=== PATIENT | male | born 1970 ===

== ENCOUNTER 2017-03-27 21:56 | Inpatient (IN) | payer BC ==
[2017-03-27] MEDS ORDERED: Sodium Chloride 0.9% 1,000 ML IV STA (22:28)
[2017-03-27] MEDS ORDERED: Piperacillin/Tazobact 3.375 GM in Sodium Chloride 0.9% 100 ML IV STA (22:30)
[2017-03-27 22:46] LABS: ABG ALLEN TEST YES; ARTERIAL BLOOD GAS HCO3 27.7 mmol/L (21-28); ARTERIAL BLOOD GAS PH 7.44 (7.35-7.45); ARTERIAL BLOOD GAS PO2 51 mm/Hg (80-100)
--- NOTE | 2017-03-27 23:04 | CP.PCM.CON ---
History of Present Illness - History of Present Illness History of Present Illness: Podiatry Consult Note - Dr. Kinsey 47 year old male PMHx uncontrolled Type 2 DM seen in ED for left foot wound. Patient seen resting comfortably at time of visit. Patient is accompanied by and son at bedside. Patient states he first noticed an abscess forming on the back of his heel approximately 3 days ago; patient denies any acute trauma to the area. Patient believes it developed because of his shoes rubbing against his heel. Patient states yesterday he popped the abscess and noticed pus coming out of it, which led him to present to [facility] ED. Patient denies any pain to his left heel. Patient admits to being diabetic, but states he does not take any medications or check his blood sugar at all. Patient admits to feeling numbness , burning, and tingling frequently in both feet. Patient denies N/V/F/D/C/SOB/ calf pain. Offers no other pedal complaints at this time. PMH: Type 2 DM PSH: none FH: unknown SH: occasional ETOH, 2 PPD tobacco use for over 20 years, regular marijuana use , occasional cocaine use Meds: none All: NKDA Review of Systems - Review of Systems All systems: reviewed and no additional remarkable complaints except (as per HPI ) Past Patient History - Past Social History Smoking Status: Never Smoked - PSYCHIATRIC Hx Substance Use: No - SURGICAL HISTORY Hx Surgeries: No Meds Allergies/Adverse Reactions: Allergies Allergy/AdvReac Type Severity Reaction Status Date / Time No Known Allergies Allergy Verified 03/26/15 18:29 - Medications Medications: Current Medications Sodium Chloride (Sodium Chloride 0.9%) 1,000 mls @ 1,000 mls/hr IV .Q1H STA Stop: 03/27/17 23:27 Vancomycin HCl 1 gm/ Sodium (Chloride) 250 mls @ 250 mls/hr IVPB STAT STA PRN Reason: Protocol Stop: 03/27/17 23:29 Piperacillin Sod/Tazobactam (Sod 3.375 gm/ Sodium Chloride) 100 mls @ 100 mls/ hr IV STAT STA PRN Reason: Protocol Stop: 03/27/17 23:29 Physical Exam - Constitutional Appears: Well, Non-toxic, No Acute Distress - Extremities Exam Additional comments: VASC: DP and PT pulses palpable 2/4 b/l. CFT <3 seconds to all digits x10. Pedal hair growth appreciated. Increase in warmth noted to left foot as compared to contralateral side, specifically at posterior calcaneus. No edema noted. NEURO: Gross sensation diminished bilaterally. DERM: Lanced abscess noted to left posterosuperolateral calcaneus with crust overlying opening - no purulence able to be expressed at this visit; does not probe to bone. Erythema noted to dorsolateral left foot. No flucutance noted. ORTHO: No pain on palpation posterosuperolateral left calcaneus. No pain upon calcaneal squeeze L foot. No pain on palpation left Achilles tendon. Muscle strength 5/5 for all dorsiflexors, plantarflexors, inverters, and everters without pain or crepitus noted b/l. - Neurological Exam Neurological exam: Alert, Oriented x3 - Psychiatric Exam Psychiatric exam: Normal Affect, Normal Mood Results - Vital Signs Recent Vital Signs: Last Vital Signs Temp 96.6 F L 03/27/17 21:58 Pulse 107 H 03/27/17 21:58 Resp 18 03/27/17 21:58 BP 139/81 03/27/17 21:58 Pulse Ox 100 03/27/17 21:58 - Labs Result Diagrams: 03/27/17 23:38 03/27/17 23:38 Labs: Laboratory Results - last 24 hr 03/27/17 22:40 pCO2 42 pO2 51 L HCO3 27.7 ABG pH 7.44 ABG Total CO2 29.8 H ABG O2 Saturation 94.7 L ABG Base Excess 3.9 H Steve Test Yes ABG Potassium 3.7 A-a O2 Difference 46.0 Sodium 134.0 Chloride 100.0 Glucose 395 H Lactate 1.6 FiO2 21.0 Arterial Blood Potassium 3.7 Assessment & Plan - Assessment and Plan (Free Text) Assessment: 47 year old male PMHx uncontrolled DM2 with left foot posterior calcaneal abscess + cellulitis 2/2 diabetic neuropathy Plan: Patient seen and evaluated in ED Discussed with attending, Dr. Kinsey Labs and vitals reviewed = WBC increased 11.2, afebrile, glucose 343 L foot XR reviewed - Negative for fracture; no plain film evidence of osteomyelitis; break in soft tissue envelope to posteriosuperior calcaneus Wound culture obtained from abscess, f/u report DSD applied to left foot Bactroban ordered C/w local wound care - Bactroban to abscess and dress with DSD Patient to be admitted for further evaluation of left foot abscess Will continue to follow patient while in house
--- NOTE | 2017-03-27 23:04 | ED PDOC ---
Lower Extremity Pain/Injury Time Seen by Provider: 03/27/17 22:08 Chief Complaint (Nursing): Lower Extremity Problem/Injury Chief Complaint (Provider): abcess Onset/Duration Of Symptoms: Days (three ) Current Symptoms Are (Timing): Still Present Additional Complaint(s): 47 y.o. male with hx of Type II Diabetes mellitus diagnosed 7 years ago not on any medications presents to [facility] for evaluation of abcess. Pt. states he first noted the abcess three days ago located on left foot. Pt. states it has been uncomfortable when walking and gets aggravated when it rubs up against the inside of his shoe especially because he has not been wearing socks with his shoes. Pt. also states he smokes 2 packs of cigarettes and sometimes he gets cramps in his legs which get relieved with rest. Pt. states yesterday he popped his abcess and puss was coming out of it. - Ankle/Foot Description Of Injury: Other (Left foot abrasion ) - Risk Factors DVT Risk Factors: Neg: Decreased Mobility, Extremity Immobiliztion, Major Surgery, History Of DVT, History Of PE Past Medical History Vital Signs: Last Vital Signs Temp 96.6 F L 03/27/17 21:58 Pulse 107 H 03/27/17 21:58 Resp 18 03/27/17 21:58 BP 139/81 03/27/17 21:58 Pulse Ox 100 03/27/17 21:58 - Medical History PMH: Diabetes - Surgical History Surgical History: No Surg Hx - Family History Family History: States: No Known Family Hx - Social History Current smoker - smoking cessation education provided: Yes SMOKER/PACKS PER DAY:: 2 Alcohol: > 2 Drinks/Day Drugs: Cannabis, Opiates - Home Medications Home Medications: Ambulatory Orders Medication Instructions Recorded No Known Home Med 03/28/17 - Allergies Allergies/Adverse Reactions: Allergies Allergy/AdvReac Type Severity Reaction Status Date / Time No Known Allergies Allergy Verified 03/26/15 18:29 Wells Criteria for PE - Wells Criteria for Pulmonary Embolism P.E is #1 Diagnosis, or Equally Likely: No Heart Rate >100: Yes Immobilization at least 3 days;Surgery previous 4 weeks: No Previous, objectively diagnosed PE or DVT: No Malignancy w/treatment within 6 months, or palliative: No Total Score: 1.5 Review of Systems Constitutional: Negative for: Fever, Chills Eyes: Negative for: Pain, Vision Change ENT: Negative for: Ear Pain, Ear Discharge Cardiovascular: Negative for: Chest Pain, Palpitations Respiratory: Negative for: Cough, Shortness of Breath Gastrointestinal: Negative for: Nausea, Vomiting, Abdominal Pain Musculoskeletal: Positive for: Foot Pain Skin: Positive for: Lesions (abcess ) Neurological: Negative for: Weakness, Numbness Psych: Negative for: Anxiety, Depression Physical Exam - Reviewed Vital Signs Reviewed: Yes (tachycardic ) - Physical Exam Appears: Positive for: No Acute Distress Skin: Positive for: Dry (Flushed appearrance ) Eye Exam: Positive for: PERRL. Negative for: Scleral icterus ENT: Positive for: Other (poor dention missing severa teeth ) Neck: Positive for: Painless ROM Cardiovascular/Chest: Positive for: Tachycardia. Negative for: Murmur Respiratory: Positive for: Normal Breath Sounds. Negative for: Accessory Muscle Use Pulses-Dorsalis Pedis (R): 1+ Pulses-Femoral (L): 1+ Extremity: Positive for: Capillary Refill (2 seconds), Other (abcess located left foot posterior to achilles tendon with crusting 3x4cm). Negative for: Calf Tenderness Neurologic/Psych: Positive for: Alert, Oriented - Laboratory Results Result Diagrams: 03/27/17 23:38 03/27/17 23:38 - ECG O2 Sat by Pulse Oximetry: 100 - Progress ED Course And Treament: EKG- Sinus tachycardia Accucheck- 343 Metformin 500mg I.V. fluids N.S. x 1 liter CBC- WBC elevated CMP- WNL Coags- WNL ABG- WNL Bcx Urine Dip ETOH serum < 10 Urine drug screen Wound culture- collected and sent by podaitry I.V. Vancomycin I.V. Nallelysydc Podiatry consult Medical Decision Making Medical Decision Making: Pt. is a 47 y.o. male with hx of type II DM diagnosed 7 years ago not taking any medications and smoking 2 packs per day for 30 years presents to E.D. for evaluation of left foot abscess with an accucheck of 344, tachycardia, ketones in urine will need to be admitted for diabetic ketoacidosis and evaluation of left foot abscess possibly secondary to Type II DM and underlying peripheral vascular disease. Pt. will need to be admitted for treatment of above mentioned medical problems including diabetic ketoacidosis secondary to uncontrolled type II diabetes mellitus. Pt. informed and agrees for admission. Disposition - Clinical Impression Clinical Impression: Abscess of foot, Diabetic ketoacidosis Discussed With Dr.: Rodri Estrella - Disposition Disposition Time: 23:30 Condition: GUARDED Forms: [facility] ([place])
[2017-03-27 23:42] LABS: BASO # 0.1 K/uL (0.0-0.2); BASO % 0.5 % (0.0-2.0); EOS # 0.1 K/uL (0.0-0.7); HEMATOCRIT 44.6 % (35.0-51.0); LYMPH # 1.6 K/uL (1.0-4.3); LYMPH % 13.9 % (20.0-40.0); MEAN CELL VOLUME 90.3 fl (80.0-94.0); MEAN CORPUSCULAR HEMOGLOBIN 30.5 pg (27.0-31.0); MEAN CORPUSCULAR HGB CONC 33.7 g/dL (33.0-37.0); MEAN PLATELET VOLUME 8.8 fl (7.2-11.7); MONO # 0.9 K/uL (0.0-0.8); NEUT # 8.6 K/uL (1.8-7.0); NEUT % 76.6 % (50.0-75.0); RED CELL DISTRIBUTION WIDTH 13.1 % (11.5-14.5); WHITE BLOOD COUNT 11.2 K/uL (4.8-10.8)
[2017-03-27] MEDS ORDERED: Vancomycin 1 g Inj ONE (23:43)
[2017-03-27 23:51] LABS: ALB/GLOB RATIO 1.5 (1.0-2.1); ALCOHOL SERUM < 10 mg/dl (0-10); ALKALINE PHOSPHATASE 89 U/L (38-126); ALT/SGPT 36 U/L (21-72); AST/SGOT 20 U/L (17-59); BILIRUBIN,TOTAL 0.4 mg/dl (0.2-1.3); BLOOD UREA NITROGEN 13 mg/dl (9-20); CALCIUM 9.1 mg/dL (8.4-10.2); CARBON DIOXIDE 27 mmol/L (22-30); CHLORIDE 99 mmol/L (98-107); GFR AFRICAN-AMERICAN > 60; GLUCOSE,RANDOM 337 mg/dL (75-110); POTASSIUM 3.7 MMOL/L (3.6-5.0); SODIUM 139 mmol/l (132-148); TOTAL PROTEIN 6.9 G/DL (6.3-8.2)
[2017-03-27 23:54] LABS: PARTIAL THROMBOPLASTIN TIME 30.5 Seconds (25.6-37.1)
[2017-03-28 01:07] LABS: RBC URINE 1 /hpf (0-3); URINE BILIRUBIN NEGATIVE (NEGATIVE); URINE BLOOD NEGATIVE (NEGATIVE); URINE COLOR STRAW (YELLOW); URINE GLUCOSE (UA) >=500 mg/dL (Normal); URINE KETONE NEGATIVE (NEGATIVE); URINE LEUKOCYTE ESTERASE NEG Leu/uL (Negative); URINE PROTEIN NEGATIVE (NEGATIVE); URINE UROBILINOGEN 0.2-1.0 mg/dL (0.2-1.0); WBC URINE < 1 /hpf (0-5)
[2017-03-28] MEDS ORDERED: Pneumococcal 23-Valent Vaccine IM ONE (09:00)
[2017-03-28] MEDS ORDERED: Influenza Vaccine 18yr & older 0.5 ML/45 MCG SYR IM ONE (09:00)
--- NOTE | 2017-03-28 09:22 | RAD ---
PROCEDURE: Left Foot Radiographs. HISTORY: Abcess in type 2 diabetic COMPARISON: None. FINDINGS: BONES: Three views of the left foot were performed. No fracture is seen. No lytic process is noted. No periosteal reaction is seen. No erosions are identified. Mild degenerative changes are appreciated. No appreciable air is seen in the soft tissues. Posterior calcaneal spurs identified. Subtalar joint is unremarkable. JOINTS: Mild degenerative changes. SOFT TISSUES: Mild soft tissue swelling. No focal area of air in the soft tissues is seen to suggest abscess. No radiopaque foreign body is seen. OTHER FINDINGS: None. IMPRESSION: No fracture. No plain film evidence of osteomyelitis. Mild degenerative changes. MRI may prove helpful for further evaluation.
--- NOTE | 2017-03-28 09:40 | RAD ---
HISTORY: admit COMPARISON: No prior. FINDINGS: LUNGS: No active pulmonary disease. PLEURA: No significant pleural effusion identified, no pneumothorax apparent. CARDIOVASCULAR: Normal. OSSEOUS STRUCTURES: No significant abnormalities. VISUALIZED UPPER ABDOMEN: Normal. OTHER FINDINGS: None. IMPRESSION: No active disease.
--- NOTE | 2017-03-28 15:08 | CP.PCM.HP ---
History of Present Illness - History of Present Illness History of Present Illness: This is a 47 y/o male admitted for ulcer and abscess of the right heel. achilles for the past 3 days. Claims that he noted the ulcer to have developed 3 days ago which he thought was just from pressure from wearing shoes without socks. Took OTC meds biut to no avail hence sough consult at the ER. he was diagnosed to have DM 2 and used to be on metformin but lost his health insurance hence there was poor compliance. There was no fever or cough . Denies any foot pain although he claims to have some p sensation of pins and needles at times on both lower extremities. Present on Admission - Present on Admission Any Indicators Present on Admission: No History of DVT/PE: No History of Uncontrolled Diabetes: Yes Urinary Catheter: No Decubitus Ulcer Present: No Past Patient History - Past Medical History & Family History Past Medical History?: Yes - Past Social History Smoking Status: Heavy Smoker > 10 Cigarettes Daily - ENDOCRINE/METABOLIC Hx Endocrine Disorders: Yes Hx Diabetes Mellitus Type 2: Yes - MUSCULOSKELETAL/RHEUMATOLOGICAL Hx Falls: No - PSYCHIATRIC Hx Substance Use: No - SURGICAL HISTORY Hx Surgeries: No - ANESTHESIA Hx Anesthesia: No Hx Anesthesia Reactions: No Hx Malignant Hyperthermia: No Has any member of the family had a problem w/ anesthesia?: No Meds Allergies/Adverse Reactions: Allergies Allergy/AdvReac Type Severity Reaction Status Date / Time No Known Allergies Allergy Verified 03/26/15 18:29 Physical Exam - Head Exam Head Exam: ATRAUMATIC - Eye Exam Eye Exam: Normal appearance - ENT Exam ENT Exam: Mucous Membranes Moist - Respiratory Exam Respiratory Exam: Clear to Auscultation Bilateral, NORMAL BREATHING PATTERN - Cardiovascular Exam Cardiovascular Exam: REGULAR RHYTHM - GI/Abdominal Exam GI & Abdominal Exam: Normal Bowel Sounds - Rectal Exam Rectal Exam: NORMAL INSPECTION - Extremities Exam Additional comments: swelloig and tenderness on the left heel and left Achilles area. - Neurological Exam Neurological exam: CN II-XII Intact, Oriented x3 - Psychiatric Exam Psychiatric exam: Normal Mood Results - Vital Signs Recent Vital Signs: Last Vital Signs Temp 98 F 03/28/17 09:00 Pulse 71 03/28/17 07:58 Resp 18 03/28/17 07:58 BP 134/80 03/28/17 07:58 Pulse Ox 98 03/28/17 07:58 - Labs Result Diagrams: 03/27/17 23:38 03/27/17 23:38 Labs: Laboratory Results - last 24 hr 03/27/17 03/27/17 03/27/17 22:03 22:40 23:38 WBC 11.2 H RBC 4.94 Hgb 15.1 Hct 44.6 MCV 90.3 MCH 30.5 MCHC 33.7 RDW 13.1 Plt Count 201 MPV 8.8 Neut % (Auto) 76.6 H Lymph % (Auto) 13.9 L [place] % (Auto) 8.0 Eos % (Auto) 1.0 Baso % (Auto) 0.5 Neut # 8.6 H Lymph # 1.6 [place] # 0.9 H Eos # 0.1 Baso # 0.1 PT INR APTT pCO2 42 pO2 51 L HCO3 27.7 ABG pH 7.44 ABG Total CO2 29.8 H ABG O2 Saturation 94.7 L ABG Base Excess 3.9 H Steve Test Yes ABG Potassium 3.7 A-a O2 Difference 46.0 Sodium 134.0 Chloride 100.0 Glucose 395 H Lactate 1.6 FiO2 21.0 Potassium Carbon Dioxide Anion Gap BUN Creatinine Est GFR ( Amer) Est GFR (Non-Af Amer) POC Glucose (mg/dL) 343 H Random Glucose Calcium Total Bilirubin AST ALT Alkaline Phosphatase Total Protein Albumin Globulin Albumin/Globulin Ratio Arterial Blood Potassium 3.7 Urine Color Urine Clarity Urine pH Ur Specific [place] Urine Protein Urine Glucose (UA) Urine Ketones Urine Blood Urine Nitrate Urine Bilirubin Urine Urobilinogen Ur Leukocyte Esterase Urine RBC (Auto) Urine Microscopic WBC Urine Opiates Screen Urine Methadone Screen Ur Barbiturates Screen Ur Phencyclidine Scrn Ur Amphetamines Screen U Benzodiazepines Scrn U Oth Cocaine Metabols U Cannabinoids Screen Alcohol, Quantitative 03/27/17 03/27/17 03/28/17 23:38 23:38 00:51 WBC RBC Hgb Hct MCV MCH MCHC RDW Plt Count MPV Neut % (Auto) Lymph % (Auto) [place] % (Auto) Eos % (Auto) Baso % (Auto) Neut # Lymph # [place] # Eos # Baso # PT 11.0 INR 1.0 APTT 30.5 pCO2 pO2 HCO3 ABG pH ABG Total CO2 ABG O2 Saturation ABG Base Excess Steve Test ABG Potassium A-a O2 Difference Sodium 139 Chloride 99 Glucose Lactate FiO2 Potassium 3.7 Carbon Dioxide 27 Anion Gap 16 BUN 13 Creatinine 0.6 L Est GFR ( Amer) > 60 Est GFR (Non-Af Amer) > 60 POC Glucose (mg/dL) Random Glucose 337 H Calcium 9.1 Total Bilirubin 0.4 AST 20 ALT 36 Alkaline Phosphatase 89 Total Protein 6.9 Albumin 4.2 Globulin 2.7 Albumin/Globulin Ratio 1.5 Arterial Blood Potassium Urine Color Urine Clarity Urine pH Ur Specific [place] Urine Protein Urine Glucose (UA) Urine Ketones Urine Blood Urine Nitrate Urine Bilirubin Urine Urobilinogen Ur Leukocyte Esterase Urine RBC (Auto) Urine Microscopic WBC Urine Opiates Screen Negative Urine Methadone Screen Negative Ur Barbiturates Screen Negative Ur Phencyclidine Scrn Negative Ur Amphetamines Screen Negative U Benzodiazepines Scrn Negative U Oth Cocaine Metabols Positive H U Cannabinoids Screen Positive H Alcohol, Quantitative < 10 03/28/17 03/28/17 03/28/17 00:51 05:29 10:53 WBC RBC Hgb Hct MCV MCH MCHC RDW Plt Count MPV Neut % (Auto) Lymph % (Auto) [place] % (Auto) Eos % (Auto) Baso % (Auto) Neut # Lymph # [place] # Eos # Baso # PT INR APTT pCO2 pO2 HCO3 ABG pH ABG Total CO2 ABG O2 Saturation ABG Base Excess Steve Test ABG Potassium A-a O2 Difference Sodium Chloride Glucose Lactate FiO2 Potassium Carbon Dioxide Anion Gap BUN Creatinine Est GFR ( Amer) Est GFR (Non-Af Amer) POC Glucose (mg/dL) 216 H 190 H Random Glucose Calcium Total Bilirubin AST ALT Alkaline Phosphatase Total Protein Albumin Globulin Albumin/Globulin Ratio Arterial Blood Potassium Urine Color Straw Urine Clarity Clear Urine pH 6.0 Ur Specific [place] 1.014 Urine Protein Negative Urine Glucose (UA) >=500 Urine Ketones Negative Urine Blood Negative Urine Nitrate Negative Urine Bilirubin Negative Urine Urobilinogen 0.2-1.0 Ur Leukocyte Esterase Neg Urine RBC (Auto) 1 Urine Microscopic WBC < 1 Urine Opiates Screen Urine Methadone Screen Ur Barbiturates Screen Ur Phencyclidine Scrn Ur Amphetamines Screen U Benzodiazepines Scrn U Oth Cocaine Metabols U Cannabinoids Screen Alcohol, Quantitative Assessment & Plan (1) Abscess of foot Status: Acute (2) Diabetes mellitus type 2 in nonobese Status: Acute (3) Peripheral vascular disease Status: Acute - Assessment and Plan (Free Text) Plan: cont meds cont iv antibioitcs start gabapentin check arterial doppler lower ext metformin januvia and pioglitazone. cont accucheck bid only
--- NOTE | 2017-03-28 17:15 | US ---
PROCEDURE: Duplex ultrasound of the bilateral lower extremity arteries. HISTORY: pvd foot ulcer dm 2 COMPARISON: None available. TECHNIQUE: Grayscale and duplex Doppler evaluation of the bilateral common femoral, superficial femoral, popliteal, posterior tibial and dorsalis pedis arteries was performed.. FINDINGS: RIGHT LOWER EXTREMITY: RIGHT COMMON FEMORAL ARTERY: Mild atherosclerotic change. Maximal flow velocity of 100 cm/s. RIGHT SUPERFICIAL FEMORAL ARTERY: Widely patent proximal, mid, and distal. Maximal flow velocity of 97 cm/s. RIGHT POPLITEAL ARTERY:Mild atherosclerotic change Maximal flow velocity of 54 cm/s. RIGHT POSTERIOR TIBIAL ARTERY: Mild atherosclerotic narrowing Maximal flow velocity of 61 cm/s. RIGHT DORSALIS PEDIS ARTERY: Mild atherosclerotic change. Biphasic flow. Maximal flow velocity of 145 cm/s. LEFT LOWER EXTREMITY: LEFT COMMON FEMORAL ARTERY: Widely patent. Maximal flow velocity of 111 cm/s. LEFT SUPERFICIAL FEMORAL ARTERY: Widely patent. Maximal flow velocity of 94 cm/s. LEFT POPLITEAL ARTERY:Mild atherosclerotic change. Maximal flow velocity of 83 cm/s. LEFT POSTERIOR TIBIAL ARTERY: Atherosclerotic change. Triphasic waveform Maximal flow velocity of 105 cm/s. LEFT DORSALIS PEDIS ARTERY: Mild atherosclerotic change with triphasic flow. Maximal flow velocity of 83 cm/s. OTHER FINDINGS: Anterior tibial arteries are unremarkable. Incidental note is made of a nonspecific complex heterogeneous right 20 mass which should be further correlated with physical exam. This may reflect enlarged lymph node or other mass including abscess. This measures 5.9 x 3.2 x 2.6 centimeters. IMPRESSION: Biphasic flow with atherosclerotic change in velocity elevation in the right dorsalis pedis suggesting atherosclerotic change and hemodynamic stenosis. Further clinical follow-up suggested. No hemodynamic significant stenosis elsewhere. Large right groin mass requiring further clinical follow-up.
[2017-03-28] MEDS: Piperacillin/Tazobact 3.375 GM in Sodium Chloride 0.9% 100 ML IVPB SCH (20:35)
--- NOTE | 2017-03-28 23:33 | CP.PCM.PN ---
Subjective - Date & Time of Evaluation Date of Evaluation: 03/28/17 Time of Evaluation: 15:00 - Subjective Subjective: Podiatry Progress Note - Dr. Kinsey 47 year old male patient PMHx uncontrolled Type 2 DM seen at bedside for left foot wound + cellulitis. Patient seen resting comfortably at time of visit. Patient is accompanied by at bedside. Patient denies any acute overnight events. Patient denies pain in his left foot today. Patient denies N/V/F/D/C/ SOB. Objective - Vital Signs/Intake and Output Vital Signs (last 24 hours): Temp Pulse Resp BP Pulse Ox 99.0 F 71 19 124/50 L 97 03/28/17 15:32 03/28/17 15:32 03/28/17 15:32 03/28/17 15:32 03/28/17 17:00 - Medications Medications: Current Medications Vancomycin HCl 1 gm/ Sodium (Chloride) 250 mls @ 166.667 mls/hr IVPB Q12 TAYLOR PRN Reason: Protocol Last Admin: 03/28/17 20:38 Dose: 166.667 mls/hr Piperacillin Sod/Tazobactam (Sod 3.375 gm/ Sodium Chloride) 100 mls @ 100 mls/ hr IVPB Q12 TAYLOR PRN Reason: Protocol Last Admin: 03/28/17 20:35 Dose: 100 mls/hr Metformin HCl (Glucophage) 1,000 mg PO BIDWM [facility] Last Admin: 03/28/17 16:21 Dose: 1,000 mg Mupirocin (Bactroban Ointment) 1 applic TOP BID [facility] Last Admin: 03/28/17 16:22 Dose: 1 % Pioglitazone HCl (Actos) 30 mg PO DAILY [facility] Last Admin: 03/28/17 16:20 Dose: 30 mg Sitagliptin Phosphate (Januvia) 100 mg PO DAILY [facility] Last Admin: 03/28/17 16:20 Dose: 100 mg - Labs Labs: 03/27/17 23:38 03/27/17 23:38 PT 11.0 Seconds (9.8-13.1) 03/27/17 23:38 INR 1.0 (0.9-1.2) 03/27/17 23:38 APTT 30.5 Seconds (25.6-37.1) 03/27/17 23:38 - Constitutional Appears: Well, Non-toxic, No Acute Distress - Extremities Exam Additional comments: VASC: DP and PT pulses palpable 2/4 b/l. CFT <3 seconds to all digits x10. Pedal hair growth appreciated. Increase in warmth noted to left foot as compared to contralateral side, specifically at posterior calcaneus. No edema noted. NEURO: Gross sensation diminished bilaterally. DERM: Lanced abscess noted to left posterosuperolateral calcaneus with crust overlying opening - no purulence able to be expressed at this visit; does not probe to bone. Erythema noted to dorsolateral left foot. No flucutance noted. ORTHO: No pain on palpation posterosuperolateral left calcaneus. No pain upon calcaneal squeeze L foot. No pain on palpation left Achilles tendon. Muscle strength 5/5 for all dorsiflexors, plantarflexors, inverters, and everters without pain or crepitus noted b/l. - Neurological Exam Neurological Exam: Alert, Awake, Oriented x3 - Psychiatric Exam Psychiatric exam: Normal Affect, Normal Mood Assessment and Plan - Assessment and Plan (Free Text) Assessment: 47 year old male PMHx uncontrolled DM2 with left foot posterior calcaneal abscess + cellulitis 2/2 diabetic neuropathy Plan: Patient seen and evaluated in ED Discussed with attending, Dr. Kinsey Labs and vitals reviewed = afebrile L foot XR reviewed - Negative for fracture; no plain film evidence of osteomyelitis; break in soft tissue envelope to posteriosuperior calcaneus Awaiting wound culture report Bactroban + DSD applied to left foot C/w local wound care Continue IV abx - Vancomycin, Zosyn - ID consulted, recs appreciated Will continue to follow patient while in house
--- NOTE | 2017-03-29 06:37 | CP.PCM.PN ---
Subjective - Date & Time of Evaluation Date of Evaluation: 03/29/17 Time of Evaluation: 06:35 - Subjective Subjective: Podiatry Progress Note - Dr. Kinsey 47 year old male patient PMHx uncontrolled Type 2 DM seen at bedside for left foot wound + cellulitis. Patient denies any acute overnight events. Patient denies pain in his left foot today. Patient denies N/V/F/D/C/SOB. Offers no pedal complaints at today's visit. Objective - Vital Signs/Intake and Output Vital Signs (last 24 hours): Temp Pulse Resp BP Pulse Ox 97.8 F 67 19 125/75 99 03/29/17 00:00 03/29/17 00:00 03/29/17 00:00 03/29/17 00:00 03/29/17 00:00 - Medications Medications: Current Medications Vancomycin HCl 1 gm/ Sodium (Chloride) 250 mls @ 166.667 mls/hr IVPB Q12 [facility] PRN Reason: Protocol Last Admin: 03/28/17 20:38 Dose: 166.667 mls/hr Piperacillin Sod/Tazobactam (Sod 3.375 gm/ Sodium Chloride) 100 mls @ 100 mls/ hr IVPB Q12 [facility] PRN Reason: Protocol Last Admin: 03/28/17 20:35 Dose: 100 mls/hr Metformin HCl (Glucophage) 1,000 mg PO BIDWM [facility] Last Admin: 03/28/17 16:21 Dose: 1,000 mg Mupirocin (Bactroban Ointment) 1 applic TOP BID [facility] Last Admin: 03/28/17 16:22 Dose: 1 % Pioglitazone HCl (Actos) 30 mg PO DAILY [facility] Last Admin: 03/28/17 16:20 Dose: 30 mg Sitagliptin Phosphate (Januvia) 100 mg PO DAILY [facility] Last Admin: 03/28/17 16:20 Dose: 100 mg - Labs Labs: 03/27/17 23:38 03/27/17 23:38 PT 11.0 Seconds (9.8-13.1) 03/27/17 23:38 INR 1.0 (0.9-1.2) 03/27/17 23:38 APTT 30.5 Seconds (25.6-37.1) 03/27/17 23:38 - Constitutional Appears: Well, Non-toxic, No Acute Distress - Extremities Exam Additional comments: VASC: DP and PT pulses palpable 2/4 b/l. CFT <3 seconds to all digits x10. Pedal hair growth appreciated. Increase in warmth noted to left foot as compared to contralateral side, specifically at posterior calcaneus. No edema noted. NEURO: Gross sensation diminished bilaterally. DERM: Lanced abscess noted to left posterosuperolateral calcaneus with crust overlying opening - no purulence able to be expressed at this visit; does not probe to bone. Erythema noted to dorsolateral left foot, resolving. No flucutance noted. ORTHO: No pain on palpation posterosuperolateral left calcaneus. No pain upon calcaneal squeeze L foot. No pain on palpation left Achilles tendon. Muscle strength 5/5 for all dorsiflexors, plantarflexors, inverters, and everters without pain or crepitus noted b/l. - Neurological Exam Neurological Exam: Alert, Awake, Oriented x3 - Psychiatric Exam Psychiatric exam: Normal Affect, Normal Mood Assessment and Plan - Assessment and Plan (Free Text) Assessment: 47 year old male PMHx uncontrolled DM2 with left foot posterior calcaneal abscess + cellulitis 2/2 diabetic neuropathy Plan: Patient seen and evaluated in ED Discussed with attending, Dr. Kinsey Labs and vitals reviewed = afebrile L foot XR reviewed - Negative for fracture; no plain film evidence of osteomyelitis; break in soft tissue envelope to posteriosuperior calcaneus Wound culture (prelim) - gram positive cocci Bactroban + DSD applied to left foot C/w local wound care Continue IV abx - Vancomycin, Zosyn - ID consulted: continue IV then PO rx minimum 7-10 days Will continue to follow patient while in house
[2017-03-29 06:45] LABS: BASO # 0.1 K/uL (0.0-0.2); BASO % 0.6 % (0.0-2.0); EOS # 0.3 K/uL (0.0-0.7); EOS % 2.1 % (0.0-4.0); HEMATOCRIT 45.5 % (35.0-51.0); LYMPH # 1.9 K/uL (1.0-4.3); LYMPH % 15.1 % (20.0-40.0); MEAN CELL VOLUME 91.6 fl (80.0-94.0); MEAN CORPUSCULAR HEMOGLOBIN 30.9 pg (27.0-31.0); MEAN CORPUSCULAR HGB CONC 33.7 g/dL (33.0-37.0); MEAN PLATELET VOLUME 9.1 fl (7.2-11.7); MONO # 1.1 K/uL (0.0-0.8); MONO % 8.5 % (0.0-10.0); NEUT # 9.3 K/uL (1.8-7.0); NEUT % 73.7 % (50.0-75.0); RED CELL DISTRIBUTION WIDTH 12.9 % (11.5-14.5); WHITE BLOOD COUNT 12.6 K/uL (4.8-10.8)
[2017-03-29 07:17] LABS: THYROID STIMULATING HORMONE 1.91 mIU/ML (0.46-4.68)
[2017-03-29 08:12] LABS: BLOOD UREA NITROGEN 14 mg/dl (9-20); CALCIUM 9.6 mg/dL (8.4-10.2); CARBON DIOXIDE 28 mmol/L (22-30); CHLORIDE 103 mmol/L (98-107); GFR AFRICAN-AMERICAN > 60; GLUCOSE,RANDOM 143 mg/dL (75-110); POTASSIUM 4.5 MMOL/L (3.6-5.0); SODIUM 139 mmol/l (132-148)
[2017-03-29 08:14] VITALS: RESP 20
[2017-03-29] MEDS: Piperacillin/Tazobact 3.375 GM in Sodium Chloride 0.9% 100 ML IVPB SCH ×2 (09:58→20:15)
--- NOTE | 2017-03-29 10:42 | CP.PCM.CON ---
History of Present Illness - History of Present Illness History of Present Illness: 47 y.o. male with hx of Type II Diabetes mellitus diagnosed 7 years ago not on any medications presents to E.D. for evaluation of abcess. Pt. states he first noted the abcess three days ago located on left foot. Pt. states it has been uncomfortable when walking and gets aggravated when it rubs up against the inside of his shoe especially because he has not been wearing socks with his shoes. Pt. also states he smokes 2 packs of cigarettes and sometimes he gets cramps in his legs which get relieved with rest. Pt. states yesterday he popped his abcess and puss was coming out of it. Review of Systems - Constitutional Constitutional: As Per HPI - EENT Eyes: absent: As Per HPI, Blind Spots, Blurred Vision, Change in Vision, Decreased Night Vision, Diplopia, Discharge, Dry Eye, Exophthalmos, Floaters, Irritation, Itchy Eyes, Loss of Peripheral Vision, Pain, Photophobia, Requires Corrective Lenses, Sees Flashes, Spots in Vision, Tunnel Vision, Other Visual Disturbances, Loss of Vision, Other Ears: absent: As Per HPI, Decreased Hearing, Ear Discharge, Ear Pain, Tinnitus, Abnormal Hearing, Disequilibrium, Dizziness, Other Nose/Mouth/Throat: absent: As Per HPI, Epistaxis, Nasal Congestion, Nasal Discharge, Nasal Obstruction, Nasal Trauma, Nose Pain, Post Nasal Drip, Sinus Pain, Sinus Pressure, Bleeding Gums, Change in Voice, Dental Pain, Dry Mouth, Dysphagia, Halitosis, Hoarsness, Lip Swelling, Mouth Lesions, Mouth Pain, Odynophagia, Sore Throat, Throat Swelling, Tongue Swelling, Facial Pain, Neck Pain, Neck Mass, Other - Cardiovascular Cardiovascular: absent: As Per HPI, Acrocyanosis, Chest Pain, Chest Pain at Rest , Chest Pain with Activity, Claudication, Diaphoresis, Dyspnea, Dyspnea on Exertion, Edema, Irregular Heart Rhythm, Pain Radiating to Arm/Neck/Jaw, Leg Edema, Leg Ulcers, Lightheadedness, Orthopnea, Palpitations, Paroxysmal Nocturnal Dyspnea, Pedal Edema, Radiating Pain, Rapid Heart Rate, Slow Heart Rate, Syncope, Other - Respiratory Respiratory: absent: As Per HPI, Cough, Dyspnea, Hemoptysis, Dyspnea on Exertion , Wheezing, Snoring, Stridor, Pain on Inspiration, Chest Congestion, Excessive Mucous Production, Change in Mucous Color, Pain with Coughing, Other - Gastrointestinal Gastrointestinal: absent: As Per HPI, Abdominal Pain, Belching, Bloating, Change in Bowel Habits, Change in Stool Character, Coffee Ground Emesis, Constipation, Cramping, Diarrhea, Dyspepsia, Dysphagia, Early Satiety, Excessive Flatus, Fecal Incontinence, Heartburn, Hematemesis, Hematochezia, Loose Stools, Melena, Nausea, Odynophagia, Temesmus, Vomiting, Other - Genitourinary Genitourinary: absent: As Per HPI, Change in Urinary Stream, Difficulty Urinating, Dysuria, Flank Pain, Hematuria, Pyuria, Nocturia, Urinary Incontinence, Urinary Frequency, Urinary Hesitance, Urinary Urgency, Voiding Freq/Small Amts, Freq UTI, Hx Renal/Bladder Calculi, Hx /Renal Surgery, Bladder Distension, Other - Musculoskeletal Musculoskeletal: absent: As Per HPI, Abnormal Gait, Arthralgias, Atrophy, Back Pain, Deformity, Joint Swelling, Limited Range of Motion, Loss of Height, Muscle Cramps, Muscle Weakness, Myalgias, Neck Pain, Numbness, Radiating Pain into Limb, Stiffness, Tingling, Other - Integumentary Integumentary: As Per HPI, Skin Pain, Wounds - Neurological Neurological: As Per HPI - Psychiatric Psychiatric: absent: As Per HPI, Abnormal Sleep Pattern, Anhedonia, Anxiety, Auditory Hallucinations, Behavioral Changes, Change in Appetite, Change in Libido, Confusion, Depression, Difficulty Concentrating, Hallucinations, Homicidal Ideation, Hopelessness, Irritability, Memory Loss, Mood Swings, Panic Attacks, Paranoia, Suicidal Ideation, Visual Hallucinations, Tactile Hallucinations, Other - Endocrine Endocrine: absent: As Per HPI, Change in Body Appearance, Change in Libido, Cold Intolorance, Deepening of Voice, Excessive Sweating, Fatigue, Flushing, Heat Intolorance, Increase in Ring/Shoe/Hat Size, Palpitations, Polydipsia, Polyphagia, Polyuria, Other - Hematologic/Lymphatic Hematologic: absent: As Per HPI, Easy Bleeding, Easy Bruising, Lymphadenopathy, Other Past Patient History - Past Medical History & Family History Past Medical History?: Yes - Past Social History Smoking Status: Never Smoked - ENDOCRINE/METABOLIC Hx Endocrine Disorders: Yes Hx Diabetes Mellitus Type 2: Yes - MUSCULOSKELETAL/RHEUMATOLOGICAL Hx Falls: No - PSYCHIATRIC Hx Substance Use: No - SURGICAL HISTORY Hx Surgeries: No - ANESTHESIA Hx Anesthesia: No Hx Anesthesia Reactions: No Hx Malignant Hyperthermia: No Has any member of the family had a problem w/ anesthesia?: No Meds Allergies/Adverse Reactions: Allergies Allergy/AdvReac Type Severity Reaction Status Date / Time No Known Allergies Allergy Verified 03/26/15 18:29 - Medications Medications: Current Medications Famotidine (Pepcid) 20 mg PO DAILY [facility] Last Admin: 03/29/17 09:57 Dose: 20 mg Vancomycin HCl 1 gm/ Sodium (Chloride) 250 mls @ 166.667 mls/hr IVPB Q12 [facility] PRN Reason: Protocol Last Admin: 03/29/17 09:58 Dose: 166.667 mls/hr Piperacillin Sod/Tazobactam (Sod 3.375 gm/ Sodium Chloride) 100 mls @ 100 mls/ hr IVPB Q12 [facility] PRN Reason: Protocol Last Admin: 03/29/17 09:58 Dose: 100 mls/hr Insulin Human Regular (Humulin R) 0 units SC ACHS [facility] PRN Reason: Protocol Metformin HCl (Glucophage) 1,000 mg PO BIDWM [facility] Last Admin: 03/29/17 09:51 Dose: 1,000 mg Mupirocin (Bactroban Ointment) 1 applic TOP BID [facility] Last Admin: 03/29/17 09:51 Dose: 2 % Pioglitazone HCl (Actos) 30 mg PO DAILY [facility] Last Admin: 03/29/17 09:51 Dose: 30 mg Sitagliptin Phosphate (Januvia) 100 mg PO DAILY [facility] Last Admin: 03/29/17 09:51 Dose: 100 mg Physical Exam - Constitutional Appears: Non-toxic - Head Exam Head Exam: NORMOCEPHALIC - Eye Exam Eye Exam: absent: Scleral icterus - ENT Exam ENT Exam: Mucous Membranes Dry - Neck Exam Neck exam: Negative for: Lymphadenopathy - Respiratory Exam Respiratory Exam: Decreased Breath Sounds - Cardiovascular Exam Cardiovascular Exam: REGULAR RHYTHM, +S1, +S2 - GI/Abdominal Exam GI & Abdominal Exam: Diminished Bowel Sounds, Soft. absent: Tenderness - Rectal Exam Rectal Exam: Deferred - Exam Exam: NORMAL INSPECTION - Extremities Exam Extremities exam: Negative for: pedal edema Additional comments: VASC: DP and PT pulses palpable 2/4 b/l. CFT <3 seconds to all digits x10. Pedal hair growth appreciated. Increase in warmth noted to left foot as compared to contralateral side, specifically at posterior calcaneus. No edema noted. NEURO: Gross sensation diminished bilaterally. DERM: Lanced abscess noted to left posterosuperolateral calcaneus with crust overlying opening - no purulence able to be expressed at this visit; does not probe to bone. Erythema noted to dorsolateral left foot, resolving. No flucutance noted. ORTHO: No pain on palpation posterosuperolateral left calcaneus. No pain upon calcaneal squeeze L foot. No pain on palpation left Achilles tendon. Muscle strength 5/5 for all dorsiflexors, plantarflexors, inverters, and everters without pain or crepitus noted b/l. - Back Exam Back exam: absent: CVA tenderness (L), CVA tenderness (R) - Neurological Exam Neurological exam: Alert, CN II-XII Intact, Oriented x3, Reflexes Normal - Psychiatric Exam Psychiatric exam: Normal Mood - Skin Skin Exam: Dry Results - Vital Signs Recent Vital Signs: Last Vital Signs Temp 97.4 F L 03/29/17 08:14 Pulse 70 03/29/17 08:14 Resp 20 03/29/17 08:14 BP 136/87 03/29/17 08:14 Pulse Ox 94 L 03/29/17 08:14 - Labs Result Diagrams: 03/29/17 05:25 03/29/17 08:03 Labs: Laboratory Results - last 24 hr 03/28/17 03/28/17 03/28/17 10:53 16:20 21:39 WBC RBC Hgb Hct MCV MCH MCHC RDW Plt Count MPV Neut % (Auto) Lymph % (Auto) [place] % (Auto) Eos % (Auto) Baso % (Auto) Neut # Lymph # [place] # Eos # Baso # ESR Sodium Potassium Chloride Carbon Dioxide Anion Gap BUN Creatinine Est GFR ( Amer) Est GFR (Non-Af Amer) POC Glucose (mg/dL) 190 H 223 H 130 H Random Glucose Calcium Triglycerides Cholesterol LDL Cholesterol Direct HDL Cholesterol TSH 3rd Generation 03/29/17 03/29/17 03/29/17 05:24 05:25 05:25 WBC 12.6 H RBC 4.97 Hgb 15.4 Hct 45.5 MCV 91.6 MCH 30.9 MCHC 33.7 RDW 12.9 Plt Count 213 MPV 9.1 Neut % (Auto) 73.7 Lymph % (Auto) 15.1 L [place] % (Auto) 8.5 Eos % (Auto) 2.1 Baso % (Auto) 0.6 Neut # 9.3 H Lymph # 1.9 [place] # 1.1 H Eos # 0.3 Baso # 0.1 ESR 11 Sodium Potassium Chloride Carbon Dioxide Anion Gap BUN Creatinine Est GFR ( Amer) Est GFR (Non-Af Amer) POC Glucose (mg/dL) 140 H Random Glucose Calcium Triglycerides 183 H Cholesterol 202 H LDL Cholesterol Direct 145 H HDL Cholesterol 27 L TSH 3rd Generation 1.91 03/29/17 08:03 WBC RBC Hgb Hct MCV MCH MCHC RDW Plt Count MPV Neut % (Auto) Lymph % (Auto) [place] % (Auto) Eos % (Auto) Baso % (Auto) Neut # Lymph # [place] # Eos # Baso # ESR Sodium 139 Potassium 4.5 Chloride 103 Carbon Dioxide 28 Anion Gap 13 BUN 14 Creatinine 0.8 Est GFR ( Amer) > 60 Est GFR (Non-Af Amer) > 60 POC Glucose (mg/dL) Random Glucose 143 H Calcium 9.6 Triglycerides Cholesterol LDL Cholesterol Direct HDL Cholesterol TSH 3rd Generation Assessment & Plan - Assessment and Plan (Free Text) Assessment: 47 year old male PMHx uncontrolled DM2 with left foot posterior calcaneal abscess + cellulitis 2/2 diabetic neuropathy L foot XR reviewed - Negative for fracture; no plain film evidence of osteomyelitis; break in soft tissue envelope to posteriosuperior calcaneus Awaiting wound culture report Continue IV abx - Vancomycin, Zosyn Plan: cont iv then po rx min 7-10 days
--- NOTE | 2017-03-29 10:47 | CARD ---
APPROVED REPORT EKG Measurement Heart [id number] <Conclusion> Sinus tachycardia Lateral infarct, age undetermined Abnormal ECG
--- NOTE | 2017-03-29 11:03 | PQF GENQUE ---
This form is a permanent part of the medical record 03/29/17 Dr. Cabrera, Please clarify the appropriate diagnosis for this patient. ER MD has documented the following information ( DKA ) with no mention of this diagnosis in your documentation. Please indicate in your next progress note and /or discharge summary if DKA is ruled in or ruled out. ER MD: Presents to E.D. for evaluation of left foot abscess with an accucheck of 344, tachycardia, ketones in urine will need to be admitted for diabetic ketoacidosis and evaluation of left foot abscess possibly secondary to Type II DM and underlying peripheral vascular disease. Treated with IVF and Metformin UA: KETONES: Negative. Anion gap and CO2 WNL. Started on Accuchecks with Insulin coverage, Metformin, Januvia and Actos. Clarification of your documentation is requested to better reflect the severity of illness and intensity of treatment of your patient. Indicators present [] Specify: [] [] Specify: [] [] Specify: [] [] Specify: [] Location in the medical record that reflects the above clinical findings: [] Treatment Provided: [] PHYSICIAN'S RESPONSE [] DKA ruled in [] DKA ruled out Based on your medical judgment of the clinical indicators outlined above please clarify the following: [] Practitioner response [] If unable to determine, please check the box, sign and date. Present On Admission (POA) Indicator: [] Present at the time of admission [] Not present at the time of admission [] Clinically Undetermined In responding to this query, please exercise your independent professional judgment. The fact that a question is asked does not imply that any particular answer is desired or expected. Thank you for your clarification on this documentation. If you have any questions please call:ext [phone] * Thank you, Milla Mcfarland RN [facility]
[2017-03-29] MEDS: Insulin Regular 100 units/ml SC SCH ×3 (13:13→21:59)
--- NOTE | 2017-03-30 06:28 | CP.PCM.PN ---
Subjective - Date & Time of Evaluation Date of Evaluation: 03/30/17 Time of Evaluation: 06:27 - Subjective Subjective: Podiatry Progress Note - Dr. Kinsey 47 year old male patient PMHx uncontrolled Type 2 DM seen at bedside for left foot wound + resolving cellulitis. Patient is seen resting comfortably in bed, NAD, and AA0x3. Patient denies pain in his left foot today. Patient states that he has been walking with no pain in socks. He was told he will possible be discharged today. Patient denies any acute overnight events. Patient denies N/V /F/D/C/SOB. Offers no pedal complaints at today's visit. Objective - Vital Signs/Intake and Output Vital Signs (last 24 hours): Temp Pulse Resp BP Pulse Ox 98.2 F 68 20 149/92 H 98 03/30/17 00:37 03/30/17 00:37 03/30/17 00:37 03/30/17 00:37 03/30/17 00:37 - Medications Medications: Current Medications Famotidine (Pepcid) 20 mg PO DAILY [facility] Last Admin: 03/29/17 09:57 Dose: 20 mg Vancomycin HCl 1 gm/ Sodium (Chloride) 250 mls @ 166.667 mls/hr IVPB Q12 [facility] PRN Reason: Protocol Last Admin: 03/29/17 21:27 Dose: 166.667 mls/hr Piperacillin Sod/Tazobactam (Sod 3.375 gm/ Sodium Chloride) 100 mls @ 100 mls/ hr IVPB Q12 [facility] PRN Reason: Protocol Last Admin: 03/29/17 20:15 Dose: 100 mls/hr Insulin Human Regular (Humulin R) 0 units SC ACHS [facility] PRN Reason: Protocol Last Admin: 03/29/17 21:59 Dose: Not Given Metformin HCl (Glucophage) 1,000 mg PO BIDWM [facility] Last Admin: 03/29/17 19:42 Dose: 1,000 mg Mupirocin (Bactroban Ointment) 1 applic TOP BID [facility] Last Admin: 03/29/17 17:41 Dose: 2 % Pioglitazone HCl (Actos) 30 mg PO DAILY [facility] Last Admin: 03/29/17 09:51 Dose: 30 mg Sitagliptin Phosphate (Januvia) 100 mg PO DAILY [facility] Last Admin: 03/29/17 09:51 Dose: 100 mg - Labs Labs: 03/29/17 05:25 03/29/17 08:03 PT 11.0 Seconds (9.8-13.1) 03/27/17 23:38 INR 1.0 (0.9-1.2) 03/27/17 23:38 APTT 30.5 Seconds (25.6-37.1) 03/27/17 23:38 - Constitutional Appears: Well, Non-toxic, No Acute Distress - Extremities Exam Additional comments: VASC: DP and PT pulses palpable 2/4 b/l. CFT <3 seconds to all digits x10. Pedal hair growth appreciated. Increase in warmth noted to left foot as compared to contralateral side, specifically at posterior calcaneus. No edema noted. NEURO: Gross sensation diminished bilaterally. DERM: Lanced abscess noted to left posterosuperolateral calcaneus with crust overlying opening - no purulence able to be expressed at this visit; does not probe to bone. Erythema noted to dorsolateral left foot, resolving. No flucutance noted. ORTHO: No pain on palpation posterosuperolateral left calcaneus. No pain upon calcaneal squeeze L foot. No pain on palpation left Achilles tendon. Muscle strength 5/5 for all dorsiflexors, plantarflexors, inverters, and everters without pain or crepitus noted b/l. - Neurological Exam Neurological Exam: Alert, Awake, Oriented x3 - Psychiatric Exam Psychiatric exam: Normal Affect, Normal Mood Assessment and Plan - Assessment and Plan (Free Text) Assessment: 47 year old male PMHx uncontrolled DM2 with left foot posterior calcaneal abscess + cellulitis 2/2 diabetic neuropathy Plan: Patient seen and evaluated in ED Discussed with attending, Dr. Kinsey Labs and vitals reviewed = afebrile, WBC =12.6 L foot XR reviewed - Negative for fracture; no plain film evidence of osteomyelitis; break in soft tissue envelope to posteriosuperior calcaneus Wound culture (prelim) - gram positive cocci Bactroban + DSD applied to left foot C/w local wound care Continue IV abx - Vancomycin, Zosyn - ID consulted: continue IV then PO rx minimum 7-10 days Will continue to follow patient while in house Patient will follow up with Dr. Kinsey within one week upon discharge
[2017-03-30] MEDS: Insulin Regular 100 units/ml SC SCH ×2 (07:13→13:11)
[2017-03-30 07:56] VITALS: BP 137/87; PULSE 73; TEMP 97.9; O2SAT 96
[2017-03-30 09:21] LABS: HEMATOCRIT 44.2 % (35.0-51.0); MEAN CELL VOLUME 93.5 fl (80.0-94.0); MEAN CORPUSCULAR HEMOGLOBIN 32.4 pg (27.0-31.0); MEAN CORPUSCULAR HGB CONC 34.6 g/dL (33.0-37.0); RED CELL DISTRIBUTION WIDTH 13.1 % (11.5-14.5); WHITE BLOOD COUNT 8.9 K/uL (4.8-10.8)
[2017-03-30 09:42] LABS: BLOOD UREA NITROGEN 17 mg/dl (9-20); CALCIUM 9.3 mg/dL (8.4-10.2); CARBON DIOXIDE 30 mmol/L (22-30); CHLORIDE 101 mmol/L (98-107); GFR AFRICAN-AMERICAN > 60; GLUCOSE,RANDOM 130 mg/dL (75-110); POTASSIUM 3.9 MMOL/L (3.6-5.0); SODIUM 139 mmol/l (132-148)
[2017-03-30] MEDS: Piperacillin/Tazobact 3.375 GM in Sodium Chloride 0.9% 100 ML IVPB SCH (13:59)
--- NOTE | 2017-03-30 14:46 | CP.PCM.PCO ---
Assessment/Plan - Assessment/Plan Assessment (Free Text): Pt stable, seen and cleared for d/c home by Dr. Cabrera. Wound cultures reviewed with Dr. Dubois, pt to be d/c'd on Keflex x 10 days. Rx given. Rx given for diabetic meds. Educated pt on need to check and control blood sugars and to be compliant with meds. Pt verbalized understanding, at bedside. Pt states he will f/u with his 's PMD for continued treatment and monitoring of BS. Pt to f/u with Dr. Dubois in 1 weeks.
--- NOTE | 2017-03-30 15:54 | CP.PCM.DIS ---
Provider - Provider Date of Admission: 03/27/17 23:29 Attending physician: Khanh Cabrera MD Time Spent in preparation of Discharge (in minutes): 30 Hospital Course - Lab Results Lab Results: Micro Results 03/27/17 03:30 Blood Blood Culture - Preliminary NO GROWTH AFTER 48 HOURS 03/27/17 00:00 Blood Blood Culture - Preliminary NO GROWTH AFTER 48 HOURS 03/27/17 23:20 Foot - Left Gram Stain - Final 03/27/17 23:20 Foot - Left Wound Culture - Final Staphylococcus Aureus Most Recent Lab Values WBC 8.9 K/uL (4.8-10.8) 03/30/17 09:12 RBC 4.73 Mil/uL (4.40-5.90) 03/30/17 09:12 Hgb 15.3 g/dL (12.0-18.0) 03/30/17 09:12 Hct 44.2 % (35.0-51.0) 03/30/17 09:12 MCV 93.5 fl (80.0-94.0) 03/30/17 09:12 MCH 32.4 pg (27.0-31.0) H 03/30/17 09:12 MCHC 34.6 g/dL (33.0-37.0) 03/30/17 09:12 RDW 13.1 % (11.5-14.5) 03/30/17 09:12 Plt Count 206 K/uL (130-400) 03/30/17 09:12 MPV 9.1 fl (7.2-11.7) 03/29/17 05:25 Neut % (Auto) 73.7 % (50.0-75.0) 03/29/17 05:25 Lymph % (Auto) 15.1 % (20.0-40.0) L 03/29/17 05:25 [place] % (Auto) 8.5 % (0.0-10.0) 03/29/17 05:25 Eos % (Auto) 2.1 % (0.0-4.0) 03/29/17 05:25 Baso % (Auto) 0.6 % (0.0-2.0) 03/29/17 05:25 Neut # 9.3 K/uL (1.8-7.0) H 03/29/17 05:25 Lymph # 1.9 K/uL (1.0-4.3) 03/29/17 05:25 [place] # 1.1 K/uL (0.0-0.8) H 03/29/17 05:25 Eos # 0.3 K/uL (0.0-0.7) 03/29/17 05:25 Baso # 0.1 K/uL (0.0-0.2) 03/29/17 05:25 ESR 11 mm/hr (0-15) 03/29/17 05:25 PT 11.0 Seconds (9.8-13.1) 03/27/17 23:38 INR 1.0 (0.9-1.2) 03/27/17 23:38 APTT 30.5 Seconds (25.6-37.1) 03/27/17 23:38 pCO2 42 mm/Hg (35-45) 03/27/17 22:40 pO2 51 mm/Hg (80-100) L 03/27/17 22:40 HCO3 27.7 mmol/L (21-28) 03/27/17 22:40 ABG pH 7.44 (7.35-7.45) 03/27/17 22:40 ABG Total CO2 29.8 mmol/L (22-28) H 03/27/17 22:40 ABG O2 Saturation 94.7 % (95-98) L 03/27/17 22:40 ABG Base Excess 3.9 mmol/L (-2.0-3.0) H 03/27/17 22:40 Steve Test Yes 03/27/17 22:40 ABG Potassium 3.7 mmol/L (3.6-5.2) 03/27/17 22:40 A-a O2 Difference 46.0 mm/Hg 03/27/17 22:40 Sodium 134.0 mmol/L (132-148) 03/27/17 22:40 Chloride 100.0 mmol/L (98-107) 03/27/17 22:40 Glucose 395 mg/dL (75-110) H 03/27/17 22:40 Lactate 1.6 mmol/L (0.7-2.1) 03/27/17 22:40 FiO2 21.0 % 03/27/17 22:40 Sodium 139 mmol/l (132-148) 03/30/17 09:23 Potassium 3.9 MMOL/L (3.6-5.0) 03/30/17 09:23 Chloride 101 mmol/L (98-107) 03/30/17 09:23 Carbon Dioxide 30 mmol/L (22-30) 03/30/17 09:23 Anion Gap 13 (10-20) 03/30/17 09:23 BUN 17 mg/dl (9-20) 03/30/17 09:23 Creatinine 0.9 mg/dL (0.8-1.5) 03/30/17 09:23 Est GFR ( Amer) > 60 03/30/17 09:23 Est GFR (Non-Af Amer) > 60 03/30/17 09:23 POC Glucose (mg/dL) 113 mg/dL (65-110) H 03/30/17 11:27 Random Glucose 130 mg/dL (75-110) H 03/30/17 09:23 Hemoglobin A1c 10.6 % (4.2-6.5) H 03/29/17 05:25 Calcium 9.3 mg/dL (8.4-10.2) 03/30/17 09:23 Total Bilirubin 0.4 mg/dl (0.2-1.3) 03/27/17 23:38 AST 20 U/L (17-59) 03/27/17 23:38 ALT 36 U/L (21-72) 03/27/17 23:38 Alkaline Phosphatase 89 U/L (38-126) 03/27/17 23:38 Total Protein 6.9 G/DL (6.3-8.2) 03/27/17 23:38 Albumin 4.2 g/dL (3.5-5.0) 03/27/17 23:38 Globulin 2.7 gm/dL (2.2-3.9) 03/27/17 23:38 Albumin/Globulin Ratio 1.5 (1.0-2.1) 03/27/17 23:38 Triglycerides 183 mg/DL (0-149) H 03/29/17 05:25 Cholesterol 202 mg/dL (0-199) H 03/29/17 05:25 LDL Cholesterol Direct 145 mg/dL (0-129) H 03/29/17 05:25 HDL Cholesterol 27 MG/DL (30-70) L 03/29/17 05:25 TSH 3rd Generation 1.91 mIU/ML (0.46-4.68) 03/29/17 05:25 Arterial Blood Potassium 3.7 mmol/L (3.6-5.2) 03/27/17 22:40 Urine Color Straw (YELLOW) 03/28/17 00:51 Urine Clarity Clear (Clear) 03/28/17 00:51 Urine pH 6.0 (5.0-8.0) 03/28/17 00:51 Ur Specific [place] 1.014 (1.003-1.030) 03/28/17 00:51 Urine Protein Negative mg/dL (NEGATIVE) 03/28/17 00:51 Urine Glucose (UA) >=500 mg/dL (Normal) 03/28/17 00:51 Urine Ketones Negative mg/dL (NEGATIVE) 03/28/17 00:51 Urine Blood Negative (NEGATIVE) 03/28/17 00:51 Urine Nitrate Negative (NEGATIVE) 03/28/17 00:51 Urine Bilirubin Negative (NEGATIVE) 03/28/17 00:51 Urine Urobilinogen 0.2-1.0 mg/dL (0.2-1.0) 03/28/17 00:51 Ur Leukocyte Esterase Neg [place]/uL (Negative) 03/28/17 00:51 Urine RBC (Auto) 1 /hpf (0-3) 03/28/17 00:51 Urine Microscopic WBC < 1 /hpf (0-5) 03/28/17 00:51 Vancomycin Trough 8.6 ug/mL (5.0-10.0) 03/30/17 06:15 Urine Opiates Screen Negative (NEGATIVE) 03/28/17 00:51 Urine Methadone Screen Negative (NEGATIVE) 03/28/17 00:51 Ur Barbiturates Screen Negative (NEGATIVE) 03/28/17 00:51 Ur Phencyclidine Scrn Negative (NEGATIVE) 03/28/17 00:51 Ur Amphetamines Screen Negative (NEGATIVE) 03/28/17 00:51 U Benzodiazepines Scrn Negative (NEGATIVE) 03/28/17 00:51 U Oth Cocaine Metabols Positive (NEGATIVE) H 03/28/17 00:51 U Cannabinoids Screen Positive (NEGATIVE) H 03/28/17 00:51 Alcohol, Quantitative < 10 mg/dl (0-10) 03/27/17 23:38 - Hospital Course Hospital Course: 47 YO M admitted for ulcer and abscess of the right heel has been on IV antibiotics while inpatient. His cultures showed his wound culture is growing staph aureus. Patient has been seen by ID. Wound cultures reviewed with Dr. Dubois, pt to be d/c'd on Keflex x 10 days. Rx given. Rx given for diabetic meds. Educated pt on need to check and control blood sugars and to be compliant with meds. Pt verbalized understanding, at bedside. Pt states he will f/u with his 's PMD for continued treatment and monitoring of BS. Pt to f/u with Dr. Dubois in 1 weeks. Discharge Exam - Head Exam Head Exam: NORMOCEPHALIC - Eye Exam Eye Exam: Normal appearance - Respiratory Exam Respiratory Exam: Clear to PA & Lateral, NORMAL BREATHING PATTERN. absent: Wheezes - Cardiovascular Exam Cardiovascular Exam: REGULAR RHYTHM, +S1, +S2 - GI/Abdominal Exam GI & Abdominal Exam: Normal Bowel Sounds, Soft. absent: Tenderness - Extremities Exam Additional comments: swelling and tenderness of the left heel and achilles area - Neurological Exam Neurological exam: Alert, Normal Gait, Oriented x3 Discharge Plan - Discharge Medications Prescriptions: Cephalexin [cephalexin] 500 mg PO Q8 #30 cap MetFORMIN [glucoPHAGE] 1,000 mg PO BIDWM #60 tab Pioglitazone [Actos] 30 mg PO DAILY #30 tab SITagliptin [Januvia] 100 mg PO DAILY #30 tab - Follow Up Plan Condition: GUARDED Disposition: HOME/ ROUTINE Instructions: Diabetic Foot Care (DC), Acute Wound Care (DC), Diabetic Foot Ulcers (DC), Abscess (GEN) Additional Instructions: Complete all antibiotics. Follow up with your primary doctor in 1-2 weeks. Follow up with Dr. Dubois in 1 week follow up with podiatry apply bactroban to left heel wound two times per day. Referrals: Khanh Cabrera MD [Staff Provider] - Yoseph Dubois MD [Staff Provider] - Bebe Kinsey DPM [Staff Provider] -
== END 2017-03-30 16:05 | disposition home or self-care (01) | DRG 603 ==
LOC: H.ER 21:56 → H.ERHOLD 23:29 → H.MEDSURG1 03-28 01:07
PROVIDERS: ADMIT Family Medicine; ATTEND Family Medicine
PROC: 3E0234Z Introduction of Serum, Toxoid and Vaccine into Muscle, Percutaneous Approach (ICD-10-PCS; principal; 2017-03-28)
DX: L03.116 Cellulitis of left lower limb (principal); E11.40 Type 2 diabetes mellitus with diabetic neuropathy, unspecified; E11.51 Type 2 diabetes mellitus with diabetic peripheral angiopathy without gangrene; L97.419 Non-pressure chronic ulcer of right heel and midfoot with unspecified severity; E11.65 Type 2 diabetes mellitus with hyperglycemia; E11.621 Type 2 diabetes mellitus with foot ulcer; A49.01 Methicillin susceptible Staphylococcus aureus infection, unspecified site; F17.210 Nicotine dependence, cigarettes, uncomplicated; Z23 Encounter for immunization

== ENCOUNTER 2018-07-21 15:30 | Emergency (ER) | payer SELFPAY ==
[2018-07-21 16:05] VITALS: BP 136/87; PULSE 90; RESP 18; TEMP 98.5; O2SAT 97
--- NOTE | 2018-07-21 17:20 | ED PDOC ---
HPI: Skin/Bite Injury Time Seen by Provider: 07/21/18 16:23 Chief Complaint (Nursing): Abnormal Skin Integrity Chief Complaint (Provider): Rash History Per: Patient History/Exam Limitations: no limitations Onset/Duration Of Symptoms: Days (x1 month) Current Symptoms Are (Timing): Still Present Additional Complaint(s): 48 year old male with pmhx of diabetes presents to the ED for evaluation of a rash to his bilateral lower extremities for the past month. Patient reports that he initially developed mildly itchy red dots to his right leg which progressed despite using antibiotic cream. He reports rash has since popped up on his lower left leg and left chest, the latter being itchier in comparison to the leg rashes. Otherwise denies being in contact with anyone who has a similar rash, fever, and chills. PMD: none provided Past Medical History Reviewed: Historical Data, Nursing Documentation, Vital Signs Vital Signs: Last Vital Signs Temp 98.5 F 07/21/18 16:03 Pulse 90 07/21/18 16:03 Resp 18 07/21/18 16:03 BP 136/87 07/21/18 16:03 Pulse Ox 97 07/21/18 16:03 - Medical History PMH: Diabetes - Surgical History Surgical History: No Surg Hx - Family History Family History: States: Unknown Family Hx - Home Medications Home Medications: Ambulatory Orders Medication Instructions Recorded Cephalexin [cephalexin] 500 mg PO Q8 #30 cap 03/30/17 RX: MetFORMIN [glucoPHAGE] 1,000 mg PO BIDWM #60 tab 03/30/17 RX: Pioglitazone [Actos] 30 mg PO DAILY #30 tab 03/30/17 RX: SITagliptin [Januvia] 100 mg PO DAILY #30 tab 03/30/17 Cephalexin [Keflex] 500 mg PO Q8 10 Days capsule 07/21/18 RX: Hydrocortisone 1% Oint 1 appl TP BID 7 Days tube 07/21/18 [Cortizone 1% Oint] - Allergies Allergies/Adverse Reactions: Allergies Allergy/AdvReac Type Severity Reaction Status Date / Time No Known Allergies Allergy Verified 03/26/15 18:29 Review of Systems ROS Statement: Except As Marked, All Systems Reviewed And Found Negative Constitutional: Negative for: Fever, Chills Skin: Positive for: Rash (to bilateral legs and chest) Physical Exam - Reviewed Nursing Documentation Reviewed: Yes Vital Signs Reviewed: Yes - Physical Exam Appears: Positive for: No Acute Distress Skin: Positive for: Rash (R anterior hou and left posterior calf: scaly raised erythematous plaques approximately 6cm with satellite pink papules with associated erythema and increased warmth to touch; left chest and left lower abdomen: mildly erythematous scaly papular rash with confluence and associated excoriations, but no increased warmth or drainage) Neurologic/Psych: Positive for: Alert, Oriented - ECG O2 Sat by Pulse Oximetry: 97 (RA) Pulse Ox Interpretation: Normal Medical Decision Making Medical Decision Making: Time: 1709 Initial Impression: rash, cellulitis Initial Plan: --Pt stable for discharge to follow up in the [facility]. Will be sent home with scripts for hydrocortisone cream and antibiotics for the associated mild cellulitis. Scribe Attestation: Documented by Rayna Villanueva, acting as a scribe for Edyta Banda PA-C. Provider Scribe Attestation: All medical record entries made by the Scribe were at my direction and personally dictated by me. I have reviewed the chart and agree that the record accurately reflects my personal performance of the history, physical exam, medical decision making, and the department course for this patient. I have also personally directed, reviewed, and agree with the discharge instructions and disposition. Disposition - Clinical Impression Clinical Impression: Cellulitis, Rash in adult - Patient ED Disposition Is Patient to be Admitted: No Counseled Patient/Family Regarding: Diagnosis, Need For Followup, Rx Given - Disposition Referrals: [facility] [Outside] Disposition: Routine/Home Disposition Time: 17:20 Condition: STABLE Prescriptions: Cephalexin [Keflex] 500 mg PO Q8 10 Days capsule RX: Hydrocortisone 1% Oint [Cortizone 1% Oint] 1 appl TP BID 7 Days tube Instructions: Skin Rash (DC), Cellulitis (Skin Infection), Adult (DC) Forms: [facility] (Faroese) Print Language: MAURITANIAN
== END 2018-07-21 17:45 | disposition home or self-care (01) ==
LOC: H.ER 15:30
DX: L03.90 Cellulitis, unspecified (principal); E11.9 Type 2 diabetes mellitus without complications; R21 Rash and other nonspecific skin eruption; Z79.84 Long term (current) use of oral hypoglycemic drugs

== ENCOUNTER 2018-08-11 22:57 | Emergency (ER) | payer SELFPAY ==
[2018-08-11 23:21] VITALS: RESP 16; TEMP 98.5; O2SAT 99
--- NOTE | 2018-08-12 01:39 | ED PDOC ---
HPI: Skin/Bite Injury Time Seen by Provider: 08/12/18 01:09 Chief Complaint (Nursing): Abnormal Skin Integrity Chief Complaint (Provider): rash History Per: Patient History/Exam Limitations: no limitations Onset/Duration Of Symptoms: Days (months) Current Symptoms Are (Timing): Still Present Quality Of Symptoms: Itching Additional Complaint(s): 48 y/o male presents for evaluation of ongoing pruritic rash x 2 months. Patient states rash initially started on back of left heel, has since noticed similar rash to front of right ankle, left flank, and bilateral thighs. Denies fever, drainage from sites. Patient states he was here 3 weeks ago for same and prescribed keflex and hydrocortisone cream which states did not help Past Medical History Reviewed: Historical Data, Nursing Documentation, Vital Signs Vital Signs: Last Vital Signs Temp 98.5 F 08/11/18 23:19 Pulse 92 H 08/11/18 23:19 Resp 16 08/11/18 23:19 BP 168/85 H 08/11/18 23:19 Pulse Ox 99 08/11/18 23:19 - Medical History PMH: Diabetes - Surgical History Surgical History: No Surg Hx - Family History Family History: States: Unknown Family Hx - Home Medications Home Medications: Ambulatory Orders Medication Instructions Recorded Cephalexin [cephalexin] 500 mg PO Q8 #30 cap 03/30/17 MetFORMIN [glucoPHAGE] 1,000 mg PO BIDWM #60 tab 03/30/17 Pioglitazone [Actos] 30 mg PO DAILY #30 tab 03/30/17 SITagliptin [Januvia] 100 mg PO DAILY #30 tab 03/30/17 Cephalexin [Keflex] 500 mg PO Q8 10 Days capsule 07/21/18 Hydrocortisone 1% Oint [Cortizone 1 appl TP BID 7 Days tube 07/21/18 1% Oint] MetFORMIN [glucoPHAGE] 1,000 mg PO BID #30 tab 08/12/18 Mometasone 0.1% [Elocon 0.1%] 1 applic TP DAILY #1 tube 08/12/18 SITagliptin [Januvia] 100 mg PO DAILY #15 tab 08/12/18 - Allergies Allergies/Adverse Reactions: Allergies Allergy/AdvReac Type Severity Reaction Status Date / Time No Known Allergies Allergy Verified 08/11/18 23:19 Review of Systems ROS Statement: Except As Marked, All Systems Reviewed And Found Negative Skin: Positive for: Rash Physical Exam - Reviewed Nursing Documentation Reviewed: Yes Vital Signs Reviewed: Yes - Physical Exam Appears: Positive for: Well, Non-toxic, No Acute Distress Head Exam: Positive for: ATRAUMATIC, NORMAL INSPECTION, NORMOCEPHALIC Skin: Positive for: Rash (erythematous scabbed patchy rash left flank, anterior right ankle, posterior left heel; no tenderness, drainage, warmth. papular rash bilateral medial thighs) ENT: Positive for: Normal ENT Inspection Cardiovascular/Chest: Positive for: Regular Rate, Rhythm Respiratory: Positive for: Normal Breath Sounds Extremity: Positive for: Normal ROM Neurologic/Psych: Positive for: Alert, Oriented (x3) - ECG O2 Sat by Pulse Oximetry: 99 - Progress ED Course And Treament: Benadryl PO Patient educated on findings, discharged with rx Mometasone Patient was instructed to follow up with a Poker Supervisor for further evaluation Advised to avoid clothing contact with rash area Return precautions given Patient requesting refills for metformin 1000mg BID and januvia 100mg QD Disposition - Clinical Impression Clinical Impression: Dermatitis - Patient ED Disposition Is Patient to be Admitted: No Counseled Patient/Family Regarding: Diagnosis, Need For Followup, Rx Given - Disposition Referrals: [facility] [Outside] Disposition: Routine/Home Disposition Time: 02:11 Condition: STABLE Prescriptions: MetFORMIN [glucoPHAGE] 1,000 mg PO BID #30 tab Mometasone 0.1% [Elocon 0.1%] 1 applic TP DAILY #1 tube SITagliptin [Januvia] 100 mg PO DAILY #15 tab Instructions: Dermatitis
[2018-08-12 02:37] VITALS: BP 153/68; PULSE 88
== END 2018-08-12 02:38 | disposition home or self-care (01) ==
LOC: H.ER 22:57
DX: L30.9 Dermatitis, unspecified (principal); E11.9 Type 2 diabetes mellitus without complications; Z79.84 Long term (current) use of oral hypoglycemic drugs